=== PATIENT | female | born 1960 | race Two or more races ===

== ENCOUNTER 2018-04-24 09:48 | Day surgery (SDC) | payer OTHER ==
--- NOTE | 2018-04-23 16:00 | Pre-op HX & Phy Repo 2 SIG ---
DATE OF ADMISSION: 04/24/2018 SCHEDULED FOR OUTPATIENT ENDOSCOPY: April 24, 2018. HISTORY OF PRESENT ILLNESS: The patient is a 57-year-old female in overall stable health, with a malfunctioning Kock pouch continent ileostomy. The patient developed ulcerative colitis at age 8. In 1984, she underwent proctocolectomy with Ina ileostomy and in 1985, underwent conversion to a Kock pouch. She required revision of the valve in 1989, dilatation of the stoma under anesthesia in 1990, revision for valve prolapse in 1993, and revision of the stoma for stenosis in 1997 with subsequent frequent dilatations. She now has developed a growth within the stoma which bleeds and the stoma is very small and it is difficult for her to insert her catheter. She is scheduled to undergo pouch endoscopy. She also has history of chronic pouchitis for which she takes Cipro intermittently. PAST MEDICAL HISTORY: MEDICATIONS: Liquid Carafate into the stoma and oral Carafate for years, Zofran, Phenergan, Atrovent, Nasonex, Soma, Tylenol with Codeine, Xanax, hormones. ALLERGIES: Morphine, sulfa, and vaccinations. OPERATIONS: See list at the end of this dictation. REVIEW OF SYSTEMS: The patient has asthma. She has recent diagnosis of rheumatoid arthritis. She has chronic urination issues with chronic pelvic pain and bladder pain involving bulging in the vagina. PHYSICAL EXAMINATION: VITAL SIGNS: She is 5 feet 4 inches, 122 pounds. Recently, she has been afraid to eat. She used to weigh 147 pounds. GENERAL: The patient is arriving from out of town, will be examined upon arrival, and dictated separately. ABDOMEN: Her stoma of her Kock pouch is in the right lower quadrant. IMPRESSION: 1. Malfunctioning Kock pouch continent ileostomy with a growth within the stoma and recurrent stoma stenosis. 2. History of ulcerative colitis. 3. STATUS POST MULTIPLE ABDOMINAL OPERATIONS: 3.1. Proctocolectomy and ileostomy in 1984. 3.2. Kock pouch in 1985. 3.3. Revision of Kock pouch valve in 1989. 3.4. Dilatation of Kock pouch stoma in 1990. 3.5. Revision of Kock pouch for prolapse of valve in 1993. 3.6. Revision of stoma stenosis in 1997 with subsequent frequent dilatations. PLAN: The patient will undergo pouch endoscopy with intravenous sedation and then decision will be made as to whether surgical procedures are needed and what will be required. I had a full discussion with the patient regarding the nature of endoscopy, indications, alternatives, options, and risks. She understands and agrees to proceed. Dominic Morel M.D. DR: Carlton JOB#: [id number] CC:
[~2018-04-24] VITALS: Ht 162.6 cm; Wt 56.7 kg
[2018-04-24] VITALS (9 sets, daily range): BP systolic 124–152; BP diastolic 53–85
--- NOTE | 2018-04-24 06:49 | Anethesia Preoperative Eval ---
Anesthesia Pre-op PMH/ROS General Date of Evaluation: Apr 24, 2018 Time of Evaluation: 06:46 Anesthesiologist: maritza ASA Score: ASA 3 Mallampati Score Class I : Soft palate, uvula, fauces, pillars visible Class II: Soft palate, uvula, fauces visible Class III: Soft palate, base of uvula visible Class IV: Only hard plate visible Mallampati Classification: Class II Surgeon: norma Diagnosis: malfunctioning kock pouch Surgical Procedure: endopouch Anesthesia History: none Social History: smoking - nonsmoker Family History: no anesthesia problems Allergies: Coded Allergies: MORPHINE (Verified Allergy, Unknown, 04/23/18) SULFA (SULFONAMIDE ANTIBIOTICS) (Verified Allergy, Unknown, 04/23/18) Uncoded Allergies: VACCINE (Allergy, Unknown, 04/23/18) Medications: see eMAR Patient NPO?: Yes Past Medical History Cardiovascular: Reports: arrhythmia Pulmonary: Reports: asthma Gastrointestinal/Genitourinary: Reports: other - ulcerative colitis, pelvic pain, bladder pain Musculoskeletal/Integumentary: Reports: RA PSxH Narrative: colectomy, kock pouch Anesthesia Pre-op Phys. Exam Physician Exam Last Vital Signs Date Time Temp Pulse Resp B/P (MAP) Pulse Ox O2 Delivery O2 Flow Rate FiO2 04/24/18 11:13 Room Air 04/24/18 10:59 98.7 65 18 125/66 97 Constitutional: NAD Neurologic: CN 2-12 intact Cardiovascular: RRR Respiratory: CTA Gastrointestinal: S/NT/ND Airway Exam Mallampati Score: Class II MO: full Neck: flexible TMD: 2fb ROM: full Anesthesia Pre-op A/P Risk Assessment & Plan Assessment: asa3 Plan: mac Status Change Before Surgery: No Pre-Antibiotics Drug: Ana Fiore MD Apr 24, 2018 06:49
[~2018-04-24 09:48] MED LIST: Atropine Inj 1mg/10ml Syr IV PRN; DiphenhydrAMINE 50mg/ml Inj IVP PRN; Midazolam 2mg/2ml Inj IVP PRN; fentaNYL 100 mcg/2 mL IV PRN
--- NOTE | 2018-04-24 11:52 | Pre-Procedure Note/Attestation ---
Pre-Procedure Note/Attestation Complete Prior to Procedure Planned Procedure: not applicable Procedure Narrative: Kock pouch endoscopy Indications for Procedure Pre-Operative Diagnosis: Malfunctioning Kock pouch with painful intubations and bleeding Attestation I attest that I discussed the nature of the procedure; its benefits; risks and complications; and alternatives (and the risks and benefits of such alternatives ), prior to the procedure, with the patient (or the patient's legal claim service representative). I attest that, if there was a reasonable possibility of needing a blood transfusion, the patient (or the patient's legal claim service representative) was given the [facility] standardized written summary, pursuant to the [place] Blood Safety Act ([place] Health and Safety Code # 1645, as amended). I attest that I re-evaluated the patient just prior to the surgery and that there has been no change in the patient's H&P, except as documented below: none Dominic Morel MD Apr 24, 2018 11:52
[2018-04-24] MEDS ORDERED: NS 500ML IVPB ONE (12:27)
--- NOTE | 2018-04-24 12:43 | Brief Operative Note ---
Immediate Post Operative Note Operative Note Pre-op Diagnosis: Malfunctioning Kock pouch with painful intubations and bleeding Procedure: Kock pouch endoscopy Post-op Diagnosis: stenosis of entire access segment of Kock Pouch Post-op Diagnosis: same as pre-op Findings: consistent w/pre-op dx studies Surgeon: norma Anesthesiologist: willis Anesthesia: MAC Specimen: none Complications: none Condition: stable Fluids: none Estimated Blood Loss: none Drains: none Implant(s) used?: No Dominic Morel MD Apr 24, 2018 12:43
--- NOTE | 2018-04-24 13:08 | Immediate Post-Op Evaluation ---
Immediate Post-Op Evalulation Immediate Post-Op Evalulation Procedure: endopouch Date of Evaluation: Apr 24, 2018 Time of Evaluation: 13:04 IV Fluids: 350ml 0.9ns Blood Products: none Estimated Blood Loss: negligible Blood Pressure Systolic: 127 Blood Pressure Diastolic: 73 Pulse Rate: 72 Respiratory Rate: 18 O2 Sat by Pulse Oximetry: 100 Temperature (Fahrenheit): 97.8 Pain Score (1-10): 0 Nausea: No Vomiting: No Complications none Patient Status: awake, reacts, patent Hydration Status: adequate Drug: Ana Fiore MD Apr 24, 2018 13:08
--- NOTE | 2018-04-24 13:13 | 48 Hour Post Anesthesia Eval ---
Post Anesthesia Evaluation Procedure: endopouch Date of Evaluation: Apr 24, 2018 Time of Evaluation: 13:08 Blood Pressure Systolic: 134 0: 64 Pulse Rate: 67 Respiratory Rate: 18 Temperature (Fahrenheit): 97.8 O2 Sat by Pulse Oximetry: 99 Airway: patent Nausea: No Vomiting: No Pain Intensity: 7 If pain is > 6 Comment: less than 5 after analgesics Hydration Status: adequate Cardiopulmonary Status: stable Mental Status/LOC: patient returned to baseline Post-Anesthesia Complications: none Follow-up care needed: N/A Ana Zohu MD Apr 24, 2018 13:13
[2018-04-24] MEDS ORDERED: Ketorolac 30mg Inj ONE (13:34)
[2018-04-24] MEDS ORDERED: Ketorolac 30mg Inj IV ONE (13:45)
--- NOTE | 2018-04-24 18:15 | Procedure Note ---
DATE OF PROCEDURE: 04/24/2018 TYPE OF ENDOSCOPY: Kock pouch endoscopy. PRE-ENDOSCOPY DIAGNOSIS: 1. Malfunctioning Kock pouch continent ileostomy with difficult painful intubations and bleeding from stoma. 2. History of ulcerative colitis. 3. Status post multiple abdominal operations. 3.1. Proctocolectomy and ileostomy in 1984. 3.2. Kock pouch in 1985. 3.3. Revision of Kock pouch valve in 1989. 3.4. Dilatation of Kock pouch stoma in 1990. 3.5. Revision of Kock pouch for prolapse of valve 1993. 3.6. Revision of stoma stenosis 1997 with subsequent frequent dilatations. POST-ENDOSCOPY DIAGNOSES: 1. Malfunctioning Kock pouch continent ileostomy with difficult painful intubations and bleeding from stoma. 2. History of ulcerative colitis. 3. Status post multiple abdominal operations. 3.1. Proctocolectomy and ileostomy in 1984. 3.2. Kock pouch in 1985. 3.3. Revision of Kock pouch valve in 1989. 3.4. Dilatation of Kock pouch stoma in 1990. 3.5. Revision of Kock pouch for prolapse of valve 1993. 3.6. Revision of stoma stenosis 1997 with subsequent frequent dilatations. ENDOSCOPY PERFORMED: Kock pouch endoscopy. FINDINGS: Diffuse stenosis and hyperplastic polyps of the entire access segment from the stoma into the valve segment. The pouch was distensible and normal and the nipple valve was well formed. ENDOSCOPIST: Dominic Morel M.D. ANESTHESIA: Dr. Mckeon. TYPE OF ANESTHESIA: MAC intravenous sedation. DESCRIPTION OF PROCEDURE: The patient was positioned supine in the gastrointestinal laboratory following sedation by anesthesia. Using a [id number], the stoma in the right lower quadrant was entered. The tract leading into the pouch to the tip of the valve was approximately 9 cm. There were multiple hyperplastic polyps within the access segment and it was stenotic in 2 areas. The pouch itself was distensible and mucosa normal. Retroflexed views revealed a well-formed nipple valve. Withdrawal views confirmed the above findings. After removing the endoscope, I was unable to insert a 28-Hungarian [place] or a 26-Hungarian [place]ino into the pouch. A 24-Hungarian [place] did enter the pouch and completely decompressed her. The patient tolerated the endoscopy well. She will need major surgical revision with creation of a new valve and stoma with preservation of the existing Kock pouch. On physical exam, please begin as follows please see previously dictated history. The patient has now arrived from out of town. Pertinent exam reveals the abdomen to be soft and flat. There is a long midline scar and multiple additional scars. The stoma of the Kock pouch is low in the right lower quadrant. There was no evidence of abdominal wall hernia. Dominic Morel M.D. DR: Tiffanie JOB#: [id number] CC:
== END 2018-04-24 14:40 | disposition home or self-care (01) ==
LOC: GAS 09:48
DX: K91.858 Other complications of intestinal pouch (principal); Y83.8 Other surgical procedures as the cause of abnormal reaction of the patient, or of later complication, without mention of misadventure at the time of the procedure; Y92.009 Unspecified place in unspecified non-institutional (private) residence as the place of occurrence of the external cause; J45.909 Unspecified asthma, uncomplicated; M06.9 Rheumatoid arthritis, unspecified; Z87.19 Personal history of other diseases of the digestive system; Z90.49 Acquired absence of other specified parts of digestive tract; Z88.5 Allergy status to narcotic agent; Z88.2 Allergy status to sulfonamides
CPT/HCPCS: 44385; J1885; J3010; J7040; 94003; 94150